=== PATIENT | male | born 1945 | race Caucasian/White ===

== ENCOUNTER 2017-11-23 00:14 | Emergency (ER) | payer MEDICARE ==
[2017-11-23] MEDS ORDERED: Clindamycin CAP* 150 MG PO ONE (01:20)
[2017-11-23] MEDS ORDERED: Naproxen TAB* 250 MG PO ONE (01:20)
[2017-11-23] MEDS ORDERED: Bupivacaine 0.5% W/EPI SDV* 30 ML VIAL INJ ONE (01:20)
[2017-11-23] MEDS ORDERED: Bupivacaine 0.5% W/EPI SDV* 30 ML VIAL ONE (01:21)
--- NOTE | 2017-11-23 01:26 | ED ---
Throat Pain/Nasal Congestion - HPI Summary HPI Summary: Pt is a 72 y/o male who presents to the ED c/o dental pain for 4 days. He states he has a broken tooth which is very painful, and has an abscess. Pt request antibiotics. He has not seen a dentist because he doesnt have health insurance. The pain radiates to his eye and head. - History of Current Complaint Chief Complaint: EDDentalPain Time Seen by Provider: 11/23/17 01:15 Hx Obtained From: Patient Onset/Duration: Gradual Onset, Lasting Days - 4, Still Present Severity: Severe Cough: None Related History: Other (Noted In Comments) - Does not go to dentist due to lack of health insurance - Allergies/Home Medications Allergies/Adverse Reactions: Allergies Allergy/AdvReac Type Severity Reaction Status Date / Time Penicillins Allergy Intermediate Difficulty Verified 11/23/17 00:16 Breathing PMH/Surg Hx/FS Hx/Imm Hx Endocrine/Hematology History: Reports: Hx Anticoagulant Therapy, Hx Diabetes - NIDDM Denies: Hx Blood Disorders, Hx Blood Transfusions, Hx Bone Marrow Disease, Hx Systemic Lupus Erythematosus, Hx Sickle Cell Disease, Hx Thyroid Disease, Hx Anemia, Hx Unexplained Bleeding Cardiovascular History: Reports: Hx Hypercholesterolemia, Hx Hypertension Denies: Hx Aneurysm, Hx Angina, Hx Angioplasty, Hx Auto Implanted Cardiovert Defib, Hx Cardiac Arrest, Hx Cardiomegaly, Hx Congenital Heart Disease, Hx Congestive Heart Failure, Hx Coronary Artery Disease, Hx Deep Vein Thrombosis, Hx Embolism, Hx Hypotension, Hx Pacemaker/ICD, Hx Peripheral Vascular Disease, Hx Rheumatic Fever, Hx Syncope, Hx Valvular Heart Disease History: Denies: Hx Acute Renal Failure, Hx Benign Prostatic Hyperplasia, Hx Chronic Renal Failure, Hx Dialysis, Hx Kidney Infection, Hx Kidney Stones Musculoskeletal History: Reports: Hx Back Problems Sensory History: Reports: Hx Contacts or Glasses Denies: Hx Cataracts, Hx Eye Injury, Hx Eye Prosthesis, Hx Glaucoma, Hx Legally Blind, Hx Macular Degeneration, Hx Vision Problem, Hx Deafness, Hx Hearing Aid, Hx Hearing Problem, Other Sensory Impairments Opthamlomology History: Reports: Hx Contacts or Glasses Denies: Hx Cataracts, Hx Eye Injury, Hx Eye Prosthesis, Hx Glaucoma, Hx Legally Blind, Hx Macular Degeneration, Hx Vision Problem, Other Sensory Impairments Neurological History: Denies: Hx Dementia, Hx Developmental Delay, Hx Headaches, Hx Migraine, Hx Nerve Disease, Hx Seizures, Hx Spinal Cord Injury, Hx Transient Ischemic Attacks (TIA), Other Neuro Impairments/Disorders Psychiatric History: Denies: Hx Panic Disorder - Surgical History Surgery Procedure, Year, and Place: GALLBLADDER 2003 Hx Anesthesia Reactions: No - Immunization History Date of Tetanus Vaccine: unknown Infectious Disease History: No Infectious Disease History: Reports: Hx Shingles Denies: Hx Clostridium Difficile, Hx Hepatitis, Hx Human Immunodeficiency Virus (HIV), Hx of Known/Suspected MRSA, Hx Tuberculosis, Hx Known/Suspected VRE , Traveled Outside the [place] in Last 30 Days - Family History Known Family History: Positive: Cardiac Disease, Hypertension, Diabetes - Social History Alcohol Use: None Hx Substance Use: No Substance Use Type: Reports: None Hx Tobacco Use: Yes Smoking Status (MU): Heavy Every Day Tobacco Smoker Amount Used/How Often: 1 PPD Length of Time of Smoking/Using Tobacco: 50 years Have You Smoked in the Last Year: No Review of Systems Negative: Fever Positive: Dental Pain All Other Systems Reviewed And Are Negative: Yes Physical Exam - Summary Physical Exam Summary: Appearance: Well appearing, no pain distress Skin: warm, dry, reflects adequate perfusion Head/face: normal Eyes: EOMI, CAROLANN ENT: central incisors eroded down to gingiva, gingival edema, no fluctuant or pointing mass, multiple extractions, right upper lateral central incisor cracked , adjacent canine eroded partially but not as painful Neck: supple, non-tender Respiratory: CTA, breath sounds present Cardiovascular: RRR, pulses symmetrical Abdomen: non-tender, soft Bowel Sounds: present Musculoskeletal: normal, strength/ROM intact Neuro: normal, sensory motor intact, A&Ox3 Triage Information Reviewed: Yes Vital Signs On Initial Exam: Initial Vitals Temp Pulse Resp BP Pulse Ox 98.5 F 82 22 183/89 98 11/23/17 00:16 11/23/17 00:16 11/23/17 00:16 11/23/17 00:16 11/23/17 00:16 Vital Signs Reviewed: Yes Procedures - Procedure Summary Procedure Summary: Inferior orbital nerve block. Performed for pain. 1 cc of 0.5% bupivacaine with epinephrine was injected via intraoral approach to the right-sided inferior orbital nerve. This provided adequate analgesia, anesthesia of his affected tooth. He tolerated this well without complication. Diagnostics - Vital Signs Vital Signs Temp Pulse Resp BP Pulse Ox 11/23/17 00:16 98.5 F 82 22 183/89 98 - Laboratory Lab Statement: Any lab studies that have been ordered have been reviewed, and results considered in the medical decision making process. EENT Course/Dx - Course Course Of Treatment: Dental block performed for pain with relief. Started antibiotic and provided NSAID. He will follow-up his blood pressure elevation with primary care physician and will see a dentist. - Diagnoses Provider Diagnoses: Dental abscess, Pain, dental, Hypertension Discharge - Sign-Out/Discharge Documenting (check all that apply): Patient Departure - Discharge - Discharge Plan Condition: Improved Disposition: HOME Prescriptions: Clindamycin HCl 300 mg PO TID #21 capsule Naproxen [Naproxen 250 mg tab] 250 mg PO BID PRN #12 tablet PRN Reason: Pain Patient Education Materials: Dental Abscess (ED) Referrals: Dylon Red MD [Primary Care Provider] - Additional Instructions: Call for an appointment with dental morning. Return with fever, worse, new symptoms or other concerns. Have your blood pressure rechecked by your doctor within the week. - Billing Disposition and Condition Condition: IMPROVED Disposition: Home - Attestation Statements Document Initiated by Scribe: Yes Documenting Scribe: Minnie Bingham Provider For Whom Shirleyibe is Documenting (Include Credential): Wade Mckeon MD Scribe Attestation: Minnie López scribed for Wade Mckeon MD on 11/23/17 at 0222. Scribe Documentation Reviewed: Yes Provider Attestation: The documentation as recorded by the Minnie alcantara accurately reflects the service I personally performed and the decisions made by , Wade Mckeon MD
[2017-11-23 01:54] VITALS: BP 184/99
== END 2017-11-23 01:54 | disposition home or self-care (01) ==
LOC: ED 00:14
DX: K04.7 Periapical abscess without sinus (principal); I10 Essential (primary) hypertension; F17.200 Nicotine dependence, unspecified, uncomplicated; Z88.0 Allergy status to penicillin
CPT/HCPCS: 99282; A9270-GY

== ENCOUNTER 2018-05-25 13:19 | Emergency (ER) | payer MEDICARE, OTHER ==
[2018-05-25 15:15] LABS: ABS Basophils 0 10^3/ul (0-0.2); ABS Eosinophils 0.4 10^3/ul (0-0.6); ABS Lymphocytes 1.7 10^3/ul (1.0-4.8); ABS Monocytes 0.7 10^3/ul (0-0.8); ABS Neutrophils 3.4 10^3/ul (1.5-7.7); ABS Nucleated RBC 0 10^3/ul; Activated Partial Thrombo Time 30.3 seconds (26.0-36.3); Eosinophil % 6.8 %; Hematocrit 36 % (36-46); INR 1.07 (0.77-1.02); Lymphocyte % 26.8 %; Mean Corpuscular HGB Conc 31 g/dL (31-36); Mean Corpuscular Hemoglobin 25 pg (27-31); Mean Corpuscular Volume 81 fL (80-94); Mean Platelet Volume 7.3 fL (7.4-10.4); Nucleated Red Blood Cells % 0.1; Platelet Count 331 10^3/uL (150-450); Red Cell Distribution Width 17 % (10.5-15); White Blood Count 6.3 10^3/uL (3.5-10.8)
[2018-05-25 15:27] LABS: Albumin/Globulin Ratio 1.3 (1-3); BUN/Creatinine Ratio 15.4 (8-20); Calcium 8.7 mg/dL (8.6-10.3); EGFR African American 59.2 (>60); EGFR Non-African American 48.9 (>60); Globulin 3.2 g/dL (2-4); Potassium 4.1 mmol/L (3.5-5.0); Total Bilirubin 0.2 mg/dL (0.2-1.0); Total Protein 7.2 g/dL (6.4-8.9)
[2018-05-25] MEDS ORDERED: Iodixanol* (CONTRAST) 320 MG/ML 100 ML SDV IV ONE (15:32)
[2018-05-25 17:20] VITALS: BP 161/98
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
== END 2018-05-25 17:19 | disposition home or self-care (01) ==
LOC: ED 13:19
DX: S16.1XXA Strain of muscle, fascia and tendon at neck level, initial encounter (principal); S49.90XA Unspecified injury of shoulder and upper arm, unspecified arm, initial encounter; R51 Headache; V49.9XXA Car occupant (driver) (passenger) injured in unspecified traffic accident, initial encounter; Y92.9 Unspecified place or not applicable; M54.2 Cervicalgia; Z87.891 Personal history of nicotine dependence
CPT/HCPCS: 36415; 70450; 71045; 72125; 74177; 80053; 85025; 85610; 85730; 99283; Q9967

== ENCOUNTER 2018-06-04 13:38 | Emergency (ER) | payer OTHER ==
[2018-06-04] MEDS ORDERED: Diazepam TAB(*) 5 MG PO ONE ×2 (16:34→20:10)
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
[2018-06-04 20:27] VITALS: BP 0/0
== END 2018-06-04 20:34 | disposition left against medical advice (07) ==
LOC: ED 13:38
DX: S16.1XXD Strain of muscle, fascia and tendon at neck level, subsequent encounter (principal); V49.9XXD Car occupant (driver) (passenger) injured in unspecified traffic accident, subsequent encounter; Y92.410 Unspecified street and highway as the place of occurrence of the external cause; M50.31 Other cervical disc degeneration, high cervical region; M50.320 Other cervical disc degeneration, mid-cervical region, unspecified level; M50.322 Other cervical disc degeneration at C5-C6 level; M48.02 Spinal stenosis, cervical region; M62.838 Other muscle spasm; I10 Essential (primary) hypertension; E11.9 Type 2 diabetes mellitus without complications; E78.00 Pure hypercholesterolemia, unspecified; Z87.891 Personal history of nicotine dependence
CPT/HCPCS: 72141; 99283; A9270-GY

== ENCOUNTER 2018-07-18 14:47 | Emergency (ER) | payer OTHER ==
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
[2018-07-18] MEDS ORDERED: predniSONE TAB* 20 MG PO ONE (16:15)
[2018-07-18 16:39] VITALS: BP 162/92
== END 2018-07-18 16:39 | disposition home or self-care (01) ==
LOC: ED 14:47
DX: M50.222 Other cervical disc displacement at C5-C6 level (principal); E78.00 Pure hypercholesterolemia, unspecified; I10 Essential (primary) hypertension; Z87.891 Personal history of nicotine dependence; Z88.0 Allergy status to penicillin
CPT/HCPCS: 99281; J7512

== ENCOUNTER 2018-08-01 01:25 | Emergency (ER) | payer MEDICARE, OTHER ==
[2018-08-01] MEDS ORDERED: Ketorolac INJ* 30 MG/ML 1 ML VIAL IM ONE (02:48)
--- NOTE | 2018-08-01 02:48 | ED ---
Headache - HPI Summary HPI Summary: This patient is a 72 year old male presenting to [facility] with a chief complaint of headaches since one month ago. The patient needs medication. Pt states he ran out of Ativan and Prednisone and did not realize the pain would come back once he stopped taking the medication. He also reports neck pain. He rates his pain 10/10 in severity. - History Of Current Complaint Chief Complaint: EDMedicationRefill Stated Complaint: NECK PAIN,HEAD ACHE PER PT Time Seen by Provider: 08/01/18 02:36 Hx Obtained From: Patient Timing: Constant - Allergies/Home Medications Allergies/Adverse Reactions: Allergies Allergy/AdvReac Type Severity Reaction Status Date / Time Penicillins Allergy Intermediate Difficulty Verified 08/01/18 01:33 Breathing PMH/Surg Hx/FS Hx/Imm Hx Endocrine/Hematology History: Reports: Hx Anticoagulant Therapy, Hx Diabetes - NIDDM Denies: Hx Blood Disorders, Hx Blood Transfusions, Hx Bone Marrow Disease, Hx Systemic Lupus Erythematosus, Hx Sickle Cell Disease, Hx Thyroid Disease, Hx Anemia, Hx Unexplained Bleeding Cardiovascular History: Reports: Hx Hypercholesterolemia, Hx Hypertension Denies: Hx Aneurysm, Hx Angina, Hx Angioplasty, Hx Auto Implanted Cardiovert Defib, Hx Cardiac Arrest, Hx Cardiomegaly, Hx Congenital Heart Disease, Hx Congestive Heart Failure, Hx Coronary Artery Disease, Hx Deep Vein Thrombosis, Hx Embolism, Hx Hypotension, Hx Pacemaker/ICD, Hx Peripheral Vascular Disease, Hx Rheumatic Fever, Hx Syncope, Hx Valvular Heart Disease History: Denies: Hx Acute Renal Failure, Hx Benign Prostatic Hyperplasia, Hx Chronic Renal Failure, Hx Dialysis, Hx Kidney Infection, Hx Kidney Stones Musculoskeletal History: Reports: Hx Back Problems Sensory History: Reports: Hx Contacts or Glasses Denies: Hx Cataracts, Hx Eye Injury, Hx Eye Prosthesis, Hx Glaucoma, Hx Legally Blind, Hx Macular Degeneration, Hx Vision Problem, Hx Deafness, Hx Hearing Aid, Hx Hearing Problem, Other Sensory Impairments Opthamlomology History: Reports: Hx Contacts or Glasses Denies: Hx Cataracts, Hx Eye Injury, Hx Eye Prosthesis, Hx Glaucoma, Hx Legally Blind, Hx Macular Degeneration, Hx Vision Problem, Other Sensory Impairments Neurological History: Denies: Hx Dementia, Hx Developmental Delay, Hx Headaches, Hx Migraine, Hx Nerve Disease, Hx Seizures, Hx Spinal Cord Injury, Hx Transient Ischemic Attacks (TIA), Other Neuro Impairments/Disorders Psychiatric History: Denies: Hx Panic Disorder - Surgical History Surgery Procedure, Year, and Place: GALLBLADDER 2004 Hx Anesthesia Reactions: No - Immunization History Date of Tetanus Vaccine: unknown Infectious Disease History: No Infectious Disease History: Reports: Hx Shingles Denies: Hx Clostridium Difficile, Hx Hepatitis, Hx Human Immunodeficiency Virus (HIV), Hx of Known/Suspected MRSA, Hx Tuberculosis, Hx Known/Suspected VRE , Traveled Outside the [place] in Last 30 Days - Family History Known Family History: Positive: Cardiac Disease, Hypertension, Diabetes - Social History Alcohol Use: None Hx Substance Use: No Substance Use Type: Reports: Prescribed Hx Tobacco Use: Yes Smoking Status (MU): Former Smoker Amount Used/How Often: 1 PPD Length of Time of Smoking/Using Tobacco: 50 years Have You Smoked in the Last Year: No Review of Systems Positive: Other - Neck pain Positive: Headache All Other Systems Reviewed And Are Negative: Yes Physical Exam - Summary Physical Exam Summary: VITAL SIGNS: Reviewed. GENERAL: Patient is a well-developed and nourished MALE who is lying comfortable in the stretcher. Patient is not in any acute respiratory distress. HEAD AND FACE: No signs of trauma. No ecchymosis, hematomas or skull depressions. No sinus tenderness. EYES: PERRLA, EOMI x 2, No injected conjunctiva, no nystagmus. EARS: Hearing grossly intact. Ear canals and tympanic membranes are within normal limits. MOUTH: Oropharynx within normal limits. NECK: Supple, trachea is midline, no adenopathy, no JVD, no carotid bruit, no c- spine tenderness, neck with full ROM CHEST: Symmetric, no tenderness at palpation LUNGS: Clear to auscultation bilaterally. No wheezing or crackles. CVS: Regular rate and rhythm, S1 and S2 present, no murmurs or gallops appreciated. ABDOMEN: Soft, non-tender. No signs of distention. No rebound no guarding, and no masses palpated. Bowel sounds are normal. EXTREMITIES: FROM in all major joints, no edema, no cyanosis or clubbing. NEURO: Alert and oriented x 3. No acute neurological deficits. Speech is normal and follows commands. SKIN: Dry and warm Triage Information Reviewed: Yes Vital Signs On Initial Exam: Initial Vitals Temp Pulse Resp BP Pulse Ox 97.0 F 104 18 194/108 98 08/01/18 01:27 08/01/18 01:27 08/01/18 01:27 08/01/18 01:27 08/01/18 01:27 Vital Signs Reviewed: Yes Diagnostics - Vital Signs Vital Signs Temp Pulse Resp BP Pulse Ox 08/01/18 01:27 97.0 F 104 18 194/108 98 - Laboratory Lab Statement: Any lab studies that have been ordered have been reviewed, and results considered in the medical decision making process. Headache Course/Dx - Course Course Of Treatment: This patient is a 72 year old male presenting to [facility] with a chief complaint of headaches since one month ago, and medication refill to manage his pain. He declines narcotics for pain management. The patient feels better after being administered flexeril. He will be given a prescription for this medication upon discharge. This plan was discussed with the patient and he was agreeable with this plan. - Diagnoses Provider Diagnoses: Neck pain, Headache Discharge - Sign-Out/Discharge Documenting (check all that apply): Patient Departure - Discharge Patient Received Moderate/Deep Sedation with Procedure: No - Discharge Plan Condition: Stable Disposition: HOME Patient Education Materials: General Headache (ED), Neck Pain (ED) Referrals: Essie Rodrigez PA [Primary Care Provider] - Additional Instructions: Return to ED with any new or worsening symptoms. - Attestation Statements Document Initiated by Scribe: Yes Documenting Scribe: Carlos Pan Provider For Whom Scribe is Documenting (Include Credential): Yeny Nation MD Scribe Attestation: Carlos López scribed for Yeny Nation MD on 08/01/18 at 0356. Status of Scribe Document: Ready
[2018-08-01] MEDS ORDERED: Cyclobenzaprine TAB* 10 MG PO ONE (02:49)
[2018-08-01 04:10] VITALS: BP 133/95
== END 2018-08-01 04:08 | disposition home or self-care (01) ==
LOC: ED 01:25
DX: M54.2 Cervicalgia (principal); R51 Headache; Z87.891 Personal history of nicotine dependence; E11.9 Type 2 diabetes mellitus without complications; Z79.01 Long term (current) use of anticoagulants; Z88.0 Allergy status to penicillin; I10 Essential (primary) hypertension; E78.00 Pure hypercholesterolemia, unspecified
CPT/HCPCS: 96372; 99282; A9270-GY; J1885

== ENCOUNTER 2018-09-25 14:26 | Emergency (ER) | payer MEDICARE, OTHER ==
--- NOTE | 2018-09-25 15:01 | UC ---
Headache HPI - HPI Summary HPI Summary: This patient is a 73-year-old male who presents to the urgent care with a chief complaint of having severe headache, nausea vomiting, neck pain since last Tuesday. Patient reports that he is unable to take his medications and he is unable to keep anything orally. He went to physical therapy today because he has chronic neck pain and because of the symptoms descended to the urgent care for further assessment. Patient reports that the headache is 8-9 out of 10, neck pain as above 6-7 out of 10 and he continues to have nausea and vomiting. He denies any blurred patient, denies any chest pain shortness of breath or palpitations. Patient has past medical history significant for to fibrillation and he is taking blood thinners. - History Of Current Complaint Stated Complaint: VOMITING Time Seen by Provider: 09/25/18 14:44 Hx Obtained From: Patient Onset/Duration: Gradual Onset Onset Of Symptoms: Gradual Initially Headache Was: Moderate Currently Pain Is: Severe Timing: Constant Character: Throbbing Location of Headache: Diffuse Allevating Factor(s): Nothing Associated Signs And Symptoms: Positive: Nausea, Vomiting, Neck Pain - Allergies/Home Medications Allergies/Adverse Reactions: Allergies Allergy/AdvReac Type Severity Reaction Status Date / Time Penicillins Allergy Intermediate Difficulty Verified 09/25/18 15:00 Breathing Home Medications: Home Medications Apixaban* [Eliquis*] 5 mg PO DAILY 09/25/18 [History Confirmed 09/25/18] Aspirin 81 mg CHEW TAB* [Aspirin Low Dose TAB*] 81 mg PO DAILY 09/25/18 [ History Confirmed 09/25/18] Buprenorp/Nalox 8-2 MG SL TAB [Suboxone 8-2 mg SL TAB*] 2 tab.sl SL BID [History Confirmed 09/25/18] Furosemide TAB* [Lasix TAB*] 40 mg PO DAILY 09/25/18 [History Confirmed 09/25/18 ] Gabapentin CAP(*) [Neurontin 300 CAP(*)] 300 mg PO DAILY 09/25/18 [History Confirmed 09/25/18] Lisinopril TAB* [Prinivil TAB*] 10 mg PO DAILY 09/25/18 [History Confirmed 09/25] PMH/Surg Hx/FS Hx/Imm Hx Previously Healthy: Yes Cardiovascular History: Hypertension Other Cardiovascular History: atrial fibrillation Other History Of: Anticoagulant Therapy - Surgical History Surgical History: Yes Surgery Procedure, Year, and Place: GALLBLADDER 2004 - Family History Known Family History: Positive: Cardiac Disease, Hypertension, Diabetes - Social History Alcohol Use: None Substance Use Type: Prescribed Smoking Status (MU): Former Smoker Amount Used/How Often: 1 PPD Length of Time of Smoking/Using Tobacco: 50 years Have You Smoked in the Last Year: No When Did the Patient Quit Smoking/Using Tobacco: 10 years ago Household Exposure Type: Cigarettes - Immunization History Most Recent Influenza Vaccination: 2011 Most Recent Tetanus Shot: within the last 10 years Most Recent Pneumonia Vaccination: 2009 Review of Systems All Other Systems Reviewed And Are Negative: Yes Constitutional: Positive: Negative Skin: Positive: Negative Eyes: Positive: Negative ENT: Positive: Negative Respiratory: Positive: Negative Cardiovascular: Positive: Negative Gastrointestinal: Positive: Vomiting, Nausea Genitourinary: Positive: Negative Motor: Positive: Negative Neurovascular: Positive: Negative Musculoskeletal: Positive: Negative Neurological: Positive: Headache Is Patient Immunocompromised?: No Physical Exam - Summary Physical Exam Summary: VITAL SIGNS: Reviewed. GENERAL: Patient is a well developed and nourished male who is lying comfortably in the stretcher. Patient is not in any acute respiratory distress. HEAD AND FACE: No signs of trauma. No ecchymosis, hematomas or skull depressions. No sinus tenderness. EYES: PERRLA, EOMI x 2, No injected conjunctiva, no nystagmus. EARS: Hearing grossly intact. Ear canals and tympanic membranes are within normal limits. MOUTH: Oropharynx within normal limits. NECK: Supple, trachea is midline, no adenopathy, no JVD, no carotid bruit, no c- spine tenderness, neck with full ROM. CHEST: Symmetric, no tenderness at palpation LUNGS: Clear to auscultation bilaterally. No wheezing or crackles. CVS: Irregular rate and rhythm, S1 and S2 present, no murmurs or gallops appreciated. ABDOMEN: Soft, non-tender. No signs of distention. No rebound no guarding, and no masses palpated. Bowel sounds are normal. EXTREMITIES: FROM in all major joints, no edema, no cyanosis or clubbing. NEURO: Alert and oriented x 3. No acute neurological deficits. Speech is normal and follows commands. SKIN: Dry and warm Triage Information Reviewed: Yes Appearance: Well-Appearing Vital Signs Reviewed: Yes Headache Course/Dx - Course Course Of Treatment: FS 374 In the urgent care course and the patient is hypotensive, having some 124 bpm and the EKG shows that the patient has a negative fibrillation with RVR. Because of the significant symptoms and his past medical history I advised the patient to go to the emergency department for further workup and management. In the urgent care we obtained an IV accesses and the patient was given Zofran for nausea and vomiting and fluids KVO. Patient will go to the hospital via ambulance. - Differential Dx/Diagnosis Provider Diagnosis: Headache, Atrial fibrillation with RVR, Nausea and vomiting, Dehydration, Uncontrolled hypertension, Hyperglycemia due to type 2 diabetes mellitus Discharge - Sign-Out/Discharge Documenting (check all that apply): Patient Departure All imaging exams completed and their final reports reviewed: No Studies - Discharge Plan Condition: Stable Disposition: TRANS HIGHER LVL OF CARE FAC Patient Education Materials: Acute Headache (ED), Hypertension (ED) Referrals: Essie Rodrigez PA [Primary Care Provider] - Additional Instructions: Patient will be transferred to the ED via ambulance. - Billing Disposition and Condition Condition: STABLE Disposition: Trans Higher Lvl of Care Fac
[2018-09-25] MEDS ORDERED: Ondansetron INJ* 2 MG/ML VIAL IV ONE (15:02)
[2018-09-25 15:12] VITALS: BP 197/107
[2018-09-25] MEDS ORDERED: NS 0.9% 250 ML* 250 ML IV SCH (16:00)
== END 2018-09-25 15:15 | disposition short-term general hospital (02) ==
LOC: UCEAST 14:26
DX: R51 Headache (principal); I48.2 Chronic atrial fibrillation; R11.2 Nausea with vomiting, unspecified; E86.0 Dehydration; I10 Essential (primary) hypertension; E11.65 Type 2 diabetes mellitus with hyperglycemia; Z79.01 Long term (current) use of anticoagulants; Z79.82 Long term (current) use of aspirin; Z87.891 Personal history of nicotine dependence; Z88.0 Allergy status to penicillin
CPT/HCPCS: 93005; 96374; 99213; G0463; J2405

== ENCOUNTER 2018-09-25 15:56 | Emergency (ER) | payer MEDICARE, OTHER ==
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
[2018-09-25 16:48] LABS: ABS Basophils 0.1 10^3/ul (0-0.2); ABS Eosinophils 0.5 10^3/ul (0-0.6); ABS Monocytes 0.7 10^3/ul (0-0.8); ABS Neutrophils 9.2 10^3/ul (1.5-7.7); Eosinophil % 4.1 %; Hematocrit 41 % (42-52); Hemoglobin 12.8 g/dL (14.0-18.0); Lymphocyte % 16.2 %; Mean Corpuscular HGB Conc 31 g/dL (31-36); Mean Corpuscular Hemoglobin 25 pg (27-31); Mean Corpuscular Volume 81 fL (80-94); Mean Platelet Volume 6.8 fL (7.4-10.4); Platelet Count 402 10^3/uL (150-450); Red Blood Count 5.06 10^6 /uL (4.18-5.48); Red Cell Distribution Width 18 % (10-15); White Blood Count 12.4 10^3/uL (3.5-10.8)
[2018-09-25] MEDS ORDERED: AMLODIPINE 2.5 MG TAB (NF) PO ONE (16:53)
[2018-09-25] MEDS ORDERED: Atenolol TAB* 50 MG PO ONE (16:53)
[2018-09-25] MEDS ORDERED: Ondansetron INJ* 2 MG/ML VIAL IV ONE (16:54)
[2018-09-25 17:00] LABS: Urine Appearance Cloudy; Urine Bacteria Absent (Absent); Urine Bilirubin Negative (Negative); Urine Blood 1+ (Negative); Urine Color Yellow; Urine Glucose 3+(>=500 mg/dL) (Negative); Urine Ketones Trace (Negative); Urine Nitrite Negative (Negative); Urine Protein 3+(>=500 mg/dL) (Negative); Urine Red Blood Cell Trace(0-2/hpf) (Absent); Urine Specific Gravity 1.024 (1.010-1.030); Urine Urobilinogen Negative (Negative); Urine White Blood Cell Absent (Absent)
[2018-09-25] MEDS ORDERED: amLODIPine TAB* 5 MG PO ONE (17:02)
[2018-09-25 17:08] LABS: Troponin I 0.01 ng/mL (<0.04)
[2018-09-25 17:14] LABS: Albumin 3.9 g/dL (3.2-5.2); BUN/Creatinine Ratio 11.6 (8-20); Calcium 9.3 mg/dL (8.6-10.3); EGFR African American 47.7 (>60); EGFR Non-African American 39.4 (>60); Globulin 3.8 g/dL (2-4); Potassium 4.4 mmol/L (3.5-5.0); Total Bilirubin 0.4 mg/dL (0.2-1.0); Total Protein 7.7 g/dL (6.4-8.9)
[2018-09-25 17:51] LABS: Activated Partial Thrombo Time 33.6 seconds (26.0-38.0); INR 0.98 (0.82-1.09)
[2018-09-25] MEDS ORDERED: NS 0.9% 1000 ML** 1,000 ML IV ONE (18:04)
[2018-09-25] MEDS ORDERED: Iodixanol* (CONTRAST) 320 MG/ML 100 ML SDV IV ONE (18:52)
--- NOTE | 2018-09-25 19:12 | ED ---
Progress - Progress Note Progress Note: Pt is a sing out from Dr. Bowen to Dr. Nation at shift change 09/25/[address] A/P and ABG readings. - Results/Orders Results/Orders: CT A/P found: Cystitis versus bladder underdistention. Correlate with UA. No additional findings to correlate with patient's symptomatology. ED physician has reviewed this report. Re-Evaluation - Re-Evaluation First Eval Re-Evaluation Time: 18:36 Comment: On re-evaluation pt has RUQ abd pain and left mid abd pain. Will order a CT abdomen/pelvis. Course/Dx - Course Course Of Treatment: Pt is a sing out from Dr. Bowen to Dr. Nation at shift change 09/25/[address] A/P and ABG readings. She had a CT A/P which found Cystitis versus bladder underdistention. Correlate with UA. No additional findings to correlate with patient's symptomatology. Following the ABG results which showed no acute findings the pt will be discharged home with a Dx of a headache and instructed to follow up with his PCP in 2-3 days and to return to the ED with any new or worsening symptoms. - Diagnoses Provider Diagnoses: Headache Discharge - Sign-Out/Discharge Documenting (check all that apply): Patient Departure, Receiving Sign-Out Receiving patient FROM: Fabiola Hernández Patient Received Moderate/Deep Sedation with Procedure: No - Discharge Plan Condition: Stable Disposition: HOME Patient Education Materials: Acute Headache (ED) Referrals: Essie Rodrigez PA [Primary Care Provider] - 2 Days Additional Instructions: Please return to the Emergency department for any new or worsening symptoms and follow up with your PCP in 2-3 days. - Attestation Statements Document Initiated by Scribe: Yes Documenting Scribe: Asad Mendenhall Provider For Whom Scribe is Documenting (Include Credential): Yeny Nation MD Scribe Attestation: Asad López, scribed for Yeny Nation MD on 09/26/18 at 0353. Status of Scribe Document: Ready
[2018-09-25] MEDS ORDERED: Insulin REGULAR(*) 1 UNITS UNIT IV PUSH ONE (19:25)
[2018-09-25] MEDS ORDERED: Butalb/Acetamin/Caff TAB* 1 TAB PO ONE (19:26)
[2018-09-25 21:37] VITALS: BP 146/100
== END 2018-09-25 21:37 | disposition home or self-care (01) ==
LOC: ED 15:56
DX: E87.2 Acidosis (principal); R51 Headache; I10 Essential (primary) hypertension; R11.2 Nausea with vomiting, unspecified; E11.9 Type 2 diabetes mellitus without complications; I48.91 Unspecified atrial fibrillation; E78.00 Pure hypercholesterolemia, unspecified; Z88.0 Allergy status to penicillin; Z87.891 Personal history of nicotine dependence
CPT/HCPCS: 36415; 70450; 74177; 80053; 81003; 81015; 83605; 84484; 85025; 85610; 85730; 93005; 96361; 96374; 99283; A9270-GY; J2405; Q9967

== ENCOUNTER 2018-10-07 19:03 | Emergency (ER) | payer MEDICARE, OTHER ==
--- NOTE | 2018-10-07 19:40 | ED ---
GI/ HPI - HPI Summary HPI Summary: This patient is a 73 year old M presenting to ED with a chief complaint of right testicle pain and swelling since 4 days ago. The CC is described as sore. Patient was sitting on the toilet seat and it broke. Patient states he went one way and the toilet seat went another way. He states his leg pushed the testicle up and he tried to put it back in place but was unable to. Patient did not injure anything else. The patient rates the pain 10/10 in severity. Symptoms aggravated by nothing. Symptoms alleviated by ice. Patient denies fever, urinary problems, hematuria, abnormal bowel movements. - History of Current Complaint Chief Complaint: EDUrogenitalProblems Time Seen by Provider: 10/07/18 19:33 Stated Complaint: TESTICLE INJURY PER PT Hx Obtained From: Patient Onset/Duration: Started Days Ago - 4 days ago, Traumatic - Fall off broken toilet seat, Still Present Timing: Constant, Lasting Days - Since 4 days ago Severity: Severe Current Severity: Severe Pain Intensity: 10 Location of Pain: Other - Right testicle Additional Locations for Males: Testicles Pain Characteristics: Other: - Sore Associated Signs and Symptoms: Positive: Negative - Abnormal bowel movements. Negative: Fever, Hematuria, Dysuria Aggravating Factor(s): Nothing Alleviating Factor(s): Ice - Allergy/Home Medications Allergies/Adverse Reactions: Allergies Allergy/AdvReac Type Severity Reaction Status Date / Time Penicillins Allergy Intermediate Difficulty Verified 09/25/18 15:00 Breathing Home Medications: Home Medications Ibuprofen 800 mg PO Q8H PRN 10/07/18 [History Confirmed 10/07/18] PMH/Surg Hx/FS Hx/Imm Hx Previously Healthy: No Endocrine/Hematology History: Reports: Hx Anticoagulant Therapy, Hx Diabetes - Type II Denies: Hx Blood Disorders, Hx Blood Transfusions, Hx Bone Marrow Disease, Hx Systemic Lupus Erythematosus, Hx Sickle Cell Disease, Hx Thyroid Disease, Hx Anemia, Hx Unexplained Bleeding Cardiovascular History: Reports: Hx Atrial Fibrillation, Hx Hypercholesterolemia , Hx Hypertension Denies: Hx Aneurysm, Hx Angina, Hx Angioplasty, Hx Auto Implanted Cardiovert Defib, Hx Cardiac Arrest, Hx Cardiomegaly, Hx Congenital Heart Disease, Hx Congestive Heart Failure, Hx Coronary Artery Disease, Hx Deep Vein Thrombosis, Hx Embolism, Hx Hypotension, Hx Pacemaker/ICD, Hx Peripheral Vascular Disease, Hx Rheumatic Fever, Hx Syncope, Hx Valvular Heart Disease History: Denies: Hx Acute Renal Failure, Hx Benign Prostatic Hyperplasia, Hx Chronic Renal Failure, Hx Dialysis, Hx Kidney Infection, Hx Kidney Stones Musculoskeletal History: Reports: Hx Back Problems Sensory History: Reports: Hx Contacts or Glasses Denies: Hx Cataracts, Hx Eye Injury, Hx Eye Prosthesis, Hx Glaucoma, Hx Legally Blind, Hx Macular Degeneration, Hx Vision Problem, Hx Deafness, Hx Hearing Aid, Hx Hearing Problem, Other Sensory Impairments Opthamlomology History: Reports: Hx Contacts or Glasses Denies: Hx Cataracts, Hx Eye Injury, Hx Eye Prosthesis, Hx Glaucoma, Hx Legally Blind, Hx Macular Degeneration, Hx Vision Problem, Other Sensory Impairments Neurological History: Denies: Hx Dementia, Hx Developmental Delay, Hx Headaches, Hx Migraine, Hx Nerve Disease, Hx Seizures, Hx Spinal Cord Injury, Hx Transient Ischemic Attacks (TIA), Other Neuro Impairments/Disorders Psychiatric History: Denies: Hx Panic Disorder - Surgical History Surgery Procedure, Year, and Place: 2003 Hx Anesthesia Reactions: No - Immunization History Date of Tetanus Vaccine: unknown Infectious Disease History: No Infectious Disease History: Reports: Hx Shingles Denies: Hx Clostridium Difficile, Hx Hepatitis, Hx Human Immunodeficiency Virus (HIV), Hx of Known/Suspected MRSA, Hx Tuberculosis, Hx Known/Suspected VRE , Traveled Outside the [place] in Last 30 Days - Family History Known Family History: Positive: Cardiac Disease, Hypertension, Diabetes - Social History Alcohol Use: None Hx Substance Use: No Substance Use Type: Reports: Prescribed Hx Tobacco Use: Yes Smoking Status (MU): Former Smoker Amount Used/How Often: 1 PPD Length of Time of Smoking/Using Tobacco: 50 years Have You Smoked in the Last Year: No Review of Systems Negative: Fever Gastrointestinal: Negative - Abnormal bowel movements Genitourinary: Negative - Urinary problems, Other - Right testicle swelling and pain Positive: hematuria All Other Systems Reviewed And Are Negative: Yes Physical Exam - Summary Physical Exam Summary: Appearance: Well-appearing, Well-nourished, lying in bed comfortable Skin: Warm, dry, no obvious rash Eyes: sclera anicteric, no conjunctival pallor ENT: mucous membranes moist Neck: deferred Respiratory: No signs of respiratory distress Cardiovascular: Appears well perfused, pulses are nml Abdomen: deferred Male genitourinary: scrotum is swollen, particularly on the right side. It is quite tender. Left testicle is palpable, but I was unable to examine patient well enough to ascertain condition of right testicle Musculoskeletal: Moving all 4 extremities without obvious discomfort Neurological: Awake and alert, mentation is normal, speech is fluent and appropriate Psychiatric: affect is normal, does not appear anxious or depressed Triage Information Reviewed: Yes Vital Signs On Initial Exam: Initial Vitals Temp Pulse Resp BP Pulse Ox 98.5 F 90 19 198/98 96 10/07/18 19:07 10/07/18 19:07 10/07/18 19:07 10/07/18 19:07 10/07/18 19:07 Vital Signs Reviewed: Yes Diagnostics - Vital Signs Vital Signs Temp Pulse Resp BP Pulse Ox 10/07/18 19:07 98.5 F 90 19 198/98 96 - Laboratory Lab Statement: Any lab studies that have been ordered have been reviewed, and results considered in the medical decision making process. - Ultrasound Testicular Ultrasound Interpretation Completed By: Radiologist Summary of Ultrasound Findings: 1. Complex moderate right scrotal hydrocele may represent a posttraumatic pneumatocele. 2. Complex right epididymal head cyst measuring maximum of 17 mm. 3. Hypervascularity of the right epididymis and right testicle may be a reaction to blunt trauma rather than epididymoorchitis but no signs of testicular injury otherwise. 4. Diffuse thickening of the scrotal skin may represent edematous change or bruising related to blunt trauma. Dr. Singh has reviewed this radiology report. GIGU Course/Dx - Course Course Of Treatment: This patient is a 73 year old M presenting to ED with a chief complaint of right testicle pain and swelling since 4 days ago. In the ED course, patient received Percocet and Roxycodone. Right testicular US revealed 1. Complex moderate right scrotal hydrocele may represent a posttraumatic pneumatocele. 2. Complex right epididymal head cyst measuring maximum of 17 mm. 3. Hypervascularity of the right epididymis and right testicle may be a reaction to blunt trauma rather than epididymoorchitis but no signs of testicular injury otherwise. 4. Diffuse thickening of the scrotal skin may represent edematous change or bruising related to blunt trauma. Patient will be discharged w dx of blunt scrotal trauma and traumatic hydrocele. Patient understands and agrees with this plan. - Diagnoses Provider Diagnoses: Scrotal trauma, Post-traumatic hydrocele - Physician Notifications Discussed Care Of Patient With: Manjinder Perez Time Discussed With Above Provider: 21:17 Instructed by Provider To: Other - Gave radiologist background on patient condition. Radiologist will add an addendum to the testicular US report. Discharge - Sign-Out/Discharge Documenting (check all that apply): Patient Departure - Discharge Patient Received Moderate/Deep Sedation with Procedure: No - Discharge Plan Condition: Good Disposition: HOME Prescriptions: oxyCODONE/Acetamin 5/325 MG* [Percocet 5/325 TAB*] 2 tab PO Q4H PRN #15 tab MDD 8 PRN Reason: Pain - Severe Patient Education Materials: Scrotal Pain (ED) Referrals: Essie Rodrigez PA [Primary Care Provider] - Additional Instructions: Your ultrasound test did not show any worrisome injury to the testicle itself, but there is a lot of bruising and swelling in the scrotum that is clearly quite painful. This should resolve on its own and does not require any surgery, but I have prescribed some strong analgesics to help with the pain. Ice is also quite helpful, as you have already been doing. Please contact the urology office on Tuesday and see if they can see you this week to monitor your recovery. - Billing Disposition and Condition Condition: GOOD Disposition: Home - Attestation Statements Document Initiated by Braulio: Yes Documenting Scribe: Stone Chávez Provider For Whom Braulio is Documenting (Include Credential): Jose Singh MD Scribtejas Attestation: I, Stone Chávez, scribed for Jose Singh MD on 10/08/18 at 0604. Scribe Documentation Reviewed: Yes Provider Attestation: The documentation as recorded by the Stone alcantara accurately reflects the service I personally performed and the decisions made by me, Jose Singh MD Status of Braulio Document: Viewed
[2018-10-07] MEDS ORDERED: oxyCODONE/Acetamin 5/325 MG* TAB PO ONE (19:41)
[2018-10-07] MEDS ORDERED: oxyCODONE TAB* 5 MG TAB PO ONE (21:25)
[2018-10-07 22:05] VITALS: BP 155/94
== END 2018-10-07 22:28 | disposition home or self-care (01) ==
LOC: ED 19:03
DX: S39.94XA Unspecified injury of external genitals, initial encounter (principal); N43.2 Other hydrocele; W18.11XA Fall from or off toilet without subsequent striking against object, initial encounter; Y92.9 Unspecified place or not applicable; Z88.0 Allergy status to penicillin; E11.9 Type 2 diabetes mellitus without complications; I48.91 Unspecified atrial fibrillation; E78.00 Pure hypercholesterolemia, unspecified; I10 Essential (primary) hypertension; Z87.891 Personal history of nicotine dependence; N50.3 Cyst of epididymis
CPT/HCPCS: 76870; 99284; A9270-GY

== ENCOUNTER → 2019-05-10 | Emergency (ER) | payer MEDICARE ==
--- NOTE | 2019-05-10 04:26 | ED ---
Neurological HPI - HPI Summary HPI Summary: Cole nguyen called 0245 ETA 5 minutes. Patient arrived at 0255. Provider at bedside. Patient immediately to CT. Patient is a 73 y/o M arriving via ambulance to [facility] with decreased level of responsiveness for about 24 hours. tonight with increasing combativeness per . EMS has limited history from the patients , but they do not believe he has a history of dementia. BG en route 432, repeat 500+. EMS did not observe any vomiting. No measured fevers. No other history given. LEVEL 5 CAVEAT secondary to extremis. History obtained from EMS initially. While patient was in CT, his heart rate decreased into the 20s. AED/CPR in progress. ABC Alert called at 0304. called at home to confirm code status; states DNR 3:05. Patient at 0308. Medical records reveal patients history of atrial fibrillation, diabetes, hypertension, diabetes, chronic neck pain. Last medication list: Eliquis, Aspirin 81mg, Suboxone, Lasix, Lisinopril, Gabapentin. - History of Current Complaint Stated Complaint: COLE KURTZ Time Seen by Provider: 05/10/19 04:19 Hx Obtained From: EMS, Medical Records Hx From Patient Unobtainable Due To: Extremis Onset/Duration: Started hours ago Current Severity: Severe Character: Responsiveness, Other: - combative Associated Signs and Symptoms: Positive: Decreased Level of Consciousness. Negative: Nausea/Vomiting, Fever TPA Considered: No - patient out of time frame, DNR Related Hx: Anticoagulants, ASA - Allergy/Home Medications Allergies/Adverse Reactions: Allergies Allergy/AdvReac Type Severity Reaction Status Date / Time Penicillins Allergy Intermediate Difficulty Verified 03/22/19 14:54 Breathing Home Medications: Home Medications Atenolol TAB* [Tenormin TAB* 50 MG] 50 mg PO BID 02/16/12 [History Confirmed ] Insulin Glargine,Hum.rec.anlog [Lantus] 60 unit SQ QAM #0 02/16/12 [History Confirmed 03/22/19] Insulin Human LISPRO(*) [Humalog(*)] 1 units SUBCUT SEE INSTRUCTIONS 02/16/12 [ History Confirmed 03/22/19] Levothyroxine TAB* [Synthroid 100 MCG TAB*] 125 mcg PO QAM 02/16/12 [History Confirmed 03/22/19] Omeprazole CAP (NF) [Prilosec CAP* 20 MG] 20 mg PO QAM 02/16/12 [History Confirmed 03/22/19] amLODIPine TAB* [Norvasc 5 mg TAB*] 5 mg PO BID 02/16/12 [History Confirmed ] Apixaban* [Eliquis*] 2.5 mg PO BID 09/25/18 [History Confirmed 03/22/19] Aspirin 81 mg CHEW TAB* [Aspirin Low Dose TAB*] 81 mg PO QAM 09/25/18 [History Confirmed 03/22/19] Buprenorp/Nalox 8-2 MG SL TAB [Suboxone 8-2 mg SL TAB*] 2 tab.sl SL BID [History Confirmed 03/22/19] Furosemide TAB* [Lasix TAB*] 40 mg PO QAM 09/25/18 [History Confirmed 03/22/19] Lisinopril TAB* [Prinivil TAB*] 10 mg PO QAM 09/25/18 [History Confirmed ] Ibuprofen 800 mg PO Q8H PRN 10/07/18 [History Confirmed 03/22/19] Cyclobenzaprine TAB* [Flexeril 10 MG TAB*] 10 mg PO BID 03/22/19 [History Confirmed 03/22/19] Fluticasone-Salmeterol 250-50* [Advair Diskus 250-50*] 1 puff INH DAILY [History Confirmed 03/22/19] LORazepam [Ativan 1 MG TAB] 1 tab PO TID PRN 03/22/19 [History Confirmed ] Metformin HCl 1,000 mg PO BID 03/22/19 [History Confirmed 03/22/19] Pravastatin Sodium 20 mg PO QAM 03/22/19 [History Confirmed 03/22/19] Sertraline HCl [Zoloft] 25 mg PO QAM 03/22/19 [History Confirmed 03/22/19] PMH/Surg Hx/FS Hx/Imm Hx Endocrine/Hematology History: Reports: Hx Anticoagulant Therapy, Hx Diabetes - Type II Denies: Hx Blood Disorders, Hx Blood Transfusions, Hx Bone Marrow Disease, Hx Systemic Lupus Erythematosus, Hx Sickle Cell Disease, Hx Thyroid Disease, Hx Anemia, Hx Unexplained Bleeding Cardiovascular History: Reports: Hx Atrial Fibrillation, Hx Hypercholesterolemia , Hx Hypertension Denies: Hx Aneurysm, Hx Angina, Hx Angioplasty, Hx Auto Implanted Cardiovert Defib, Hx Cardiac Arrest, Hx Cardiomegaly, Hx Congenital Heart Disease, Hx Congestive Heart Failure, Hx Coronary Artery Disease, Hx Deep Vein Thrombosis, Hx Embolism, Hx Hypotension, Hx Pacemaker/ICD, Hx Peripheral Vascular Disease, Hx Rheumatic Fever, Hx Syncope, Hx Valvular Heart Disease History: Denies: Hx Acute Renal Failure, Hx Benign Prostatic Hyperplasia, Hx Chronic Renal Failure, Hx Dialysis, Hx Kidney Infection, Hx Kidney Stones, Hx Renal Disease Musculoskeletal History: Reports: Hx Back Problems Sensory History: Reports: Hx Contacts or Glasses Denies: Hx Cataracts, Hx Eye Injury, Hx Eye Prosthesis, Hx Glaucoma, Hx Legally Blind, Hx Macular Degeneration, Hx Vision Problem, Hx Deafness, Hx Hearing Aid, Hx Hearing Problem, Other Sensory Impairments Opthamlomology History: Reports: Hx Contacts or Glasses Denies: Hx Cataracts, Hx Eye Injury, Hx Eye Prosthesis, Hx Glaucoma, Hx Legally Blind, Hx Macular Degeneration, Hx Vision Problem, Other Sensory Impairments Neurological History: Denies: Hx Dementia, Hx Developmental Delay, Hx Headaches, Hx Migraine, Hx Nerve Disease, Hx Seizures, Hx Spinal Cord Injury, Hx Transient Ischemic Attacks (TIA), Other Neuro Impairments/Disorders Psychiatric History: Denies: Hx Panic Disorder - Surgical History Surgery Procedure, Year, and Place: 2003 Hx Anesthesia Reactions: No - Immunization History Date of Tetanus Vaccine: unknown Infectious Disease History: Reports: Hx Shingles Denies: Hx Clostridium Difficile, Hx Hepatitis, Hx Human Immunodeficiency Virus (HIV), Hx of Known/Suspected MRSA, Hx Tuberculosis, Hx Known/Suspected VRE , Traveled Outside the [place] in Last 30 Days - Family History Known Family History: Positive: Cardiac Disease, Hypertension, Diabetes - Social History Alcohol Use: None Hx Substance Use: No Substance Use Type: Reports: Prescribed Hx Tobacco Use: Yes Smoking Status (MU): Former Smoker Amount Used/How Often: 1 PPD Length of Time of Smoking/Using Tobacco: 50 years Have You Smoked in the Last Year: No - Additional Comments History Additional Comments: atrial fibrillation, diabetes, hypertension, diabetes, chronic neck pain Review of Systems Negative: Fever Negative: Vomiting Neurological/Mental Status: Other - decreased level of responsiveness Psychological: Other - combative All Other Systems Reviewed And Are Negative: No - Comments Additional Review of Systems Comments: LEVEL 5 CAVEAT secondary to extremis Physical Exam - Summary Physical Exam Summary: General: Well-developed, Well-nourished elderly male. Lethargic. HEENT: Normocephalic, Atraumatic. Eyes: Pupils 6mm, unreactive. Oropharynx: Clear, dry mucous membranes, (-) exudates. Neck: Soft, (-) JVD. Cardiovascular: Normal sinus rhythm, (-) murmur. Lungs: Clear to auscultation bilaterally (-) wheezes, (-) rales, (-) rhonchi. Abdomen: Soft, non-tender, non-distended, (-) organomegaly, normal bowel sounds. Extremities: No edema, erythema, or deformity. Skin: Francois in color, Warm, dry, (-) rash. Neuro: Unable to assess. Psychiatric: Unable to assess. Triage Information Reviewed: Yes Vital Signs Reviewed: Yes Completion Of Physical Exam Limited Due To: Extremis, Level 5 Procedures - Sedation Patient Received Moderate/Deep Sedation with Procedure: No Re-Evaluation - Re-Evaluation First Eval Re-Evaluation Time: 03:00 Comment: While patient was in CT, his heart rate decreased in the 20s. Second Eval Re-Evaluation Time: 03:04 Comment: ABC alert called. Third Eval Re-Evaluation Time: 03:08 Comment: Patient . Course/Dx - Course Course Of Treatment: 73-year-old male presents by ambulance from home for decreased mental status and now combativeness. EMS state that history from the was that he has been lethargic for about 24 hours. Tonight became more combative. Family noted he had not been taking care of himself lately especially in the last week. blood sugars greater than 400 en route. States he was lethargic en route. some posturing as well. Maintaining his airway and pulse. No other history available at this time. Computer system is on scheduled downtime. Patient is ashen upon arrival. Responding to pain. Patient sent immediately to CAT scan for head CT. While in CAT scan patient's review bradycardia down to 20s. Continued radiating and CPR was started. While patient was in the CAT scan I called patient's for CODE STATUS. She states he would not want to be resuscitated if he would have to live on a machine. I discussed his prognosis with her at this time and agreed that he should be DO NOT RESUSCITATE. Code was started at 304, stopped at 305. Further exam at this time demonstrates Pupils equal round 6 mm. mucous membranes. Skin is cold. Ashen. Time of 308. was notified that patient had . She and son will come in to see him. compliance examiner was notified. Initially signed off on patient. Shortly thereafter however the patient's daughter called with concerns and request an autopsy. The women's soccer coach was asked to get in touch with her. Coronary then presents to examined patient and talk with family. Please see charting for any further details. - Diagnoses Provider Diagnoses: Cardiorespiratory failure During the Visit The Following Alert/Code Occurred: Code Nguyen - 0245 ETA 5 minutes, ABC Alert - called at 0304 Discharge ED - Sign-Out/Discharge Documenting (check all that apply): Patient Departure - expiration - Discharge Plan Condition: Disposition: Referrals: Essie Rodrigez PA [Primary Care Provider] - - Billing Disposition and Condition Condition: Disposition: - Attestation Statements Document Initiated by Scribe: Yes Documenting Scribe: Mikala Lew Provider For Whom Scribe is Documenting (Include Credential): Krystin Russell MD Scribe Attestation: I, Mikala Lew, scribed for Krystin Russell MD on 05/14/19 at 2155. Scribe Documentation Reviewed: Yes Provider Attestation: The documentation as recorded by the Mikala alcantara accurately reflects the service I personally performed and the decisions made by me, Krystin Russell MD Status of Scribe Document: Viewed
== END | disposition expired ==
LOC: ED 02:55
DX: R09.2 Respiratory arrest (principal); R41.82 Altered mental status, unspecified
CPT/HCPCS: 70450; 99285